=== PATIENT | female | born 1980 ===

== ENCOUNTER 2016-11-14 12:42 | Emergency (ER) | payer OTHER ==
--- NOTE | 2016-11-14 13:28 | C.PDOC ---
History Of Present Illness 36 year old patient presents to the ED complaining of chronic headaches since last year. Patient notes the pain has been more right sided for the past week. Occasionally she feels numbness to her feet. Patient denies any injuries, dizziness, nausea, vomiting or chest pain. Time Seen by Provider: 11/14/16 13:18 Chief Complaint (Nursing): Headache History Per: Patient History/Exam Limitations: no limitations Onset/Duration Of Symptoms: Worse Since (past week), Other (last year) Current Symptoms Are (Timing): Still Present Severity: Moderate Pain Scale Rating Of: 4 Quality: "Pain" Preceeding Symptoms: None Recent travel outside of the [place]: No Past Medical History Reviewed: Historical Data, Nursing Documentation, Vital Signs Vital Signs: Last Vital Signs Temp 98.1 F 11/14/16 15:26 Pulse 62 11/14/16 15:26 Resp 18 11/14/16 15:26 BP 114/74 11/14/16 15:26 Pulse Ox 98 11/14/16 15:33 Family History: States: Unknown Family Hx - Social History Hx Alcohol Use: No Hx Substance Use: No - Immunization History Hx Tetanus Toxoid Vaccination: No Hx Influenza Vaccination: No Hx Pneumococcal Vaccination: No Review Of Systems Except As Marked, All Systems Reviewed And Found Negative. Cardiovascular: Negative for: Chest Pain Gastrointestinal: Negative for: Nausea, Vomiting Neurological: Positive for: Headache (right>left). Negative for: Dizziness Physical Exam - Physical Exam Appears: Non-toxic, No Acute Distress Skin: Warm, Dry Head: Atraumatic, Normacephalic Eye(s): bilateral: Normal Inspection, EOMI Ear(s): Bilateral: Normal Nose: Normal Oral Mucosa: Moist Throat: Normal Neck: Normal ROM, Supple Chest: Symmetrical Cardiovascular: Rhythm Regular Respiratory: No Accessory Muscle Use Back: Normal Inspection, No CVA Tenderness Extremity: Normal ROM Neurological/Psych: Oriented x3, Normal Speech, Normal Cognition, Normal Motor, Normal Sensation Gait: Steady ED Course And Treatment O2 Sat by Pulse Oximetry: 98 (RA) Pulse Ox Interpretation: Normal - Other Rad head/sinus CT X-Ray: Read By Radiologist (neg) Progress Note: Plan: -Head CT. -Pepcid, Ultram, Prednisone. -Reassess and disposition Medical Decision Making Medical Decision Making: seaonal allergies no neurological deficits to warrant further eval at this time outpatient neuro f/u. Disposition Doctor Will See Patient In The: Office Counseled Patient/Family Regarding: Studies Performed, Diagnosis - Disposition Referrals: [facility] [Outside] [facility] [Outside] Parviz Wan MD [Staff Provider] - Disposition: HOME/ ROUTINE Disposition Time: 15:32 Condition: GOOD Additional Instructions: sigue Ibuprofeno 600 mg cada 6 horas marcela necessario Tylenol 1000 mg cada 6 horas Pepcid 20 mg en la noche para prevenir irritacion' del estomach deibido al Ibuprofeno Sigue en la Clinica o' con el Neurologo marcela necessario. Instructions: General Headache (ED) Print Language: GREENLANDIC - Clinical Impression Clinical Impression: Headache - Scribe Statement The provider has reviewed the documentation as recorded by the Scribe Kendy Koroma Provider Attestation: All medical record entries made by the Scribe were at my direction and personally dictated by me. I have reviewed the chart and agree that the record accurately reflects my personal performance of the history, physical exam, medical decision making, and the department course for this patient. I have also personally directed, reviewed, and agree with the discharge instructions and disposition.
--- NOTE | 2016-11-14 14:55 | CT ---
PROCEDURE: CT HEAD WITHOUT CONTRAST. HISTORY: R AYOUB chronic, plz scan sinuses/head COMPARISON: None available. TECHNIQUE: Axial computed tomography images were obtained through the head/brain without intravenous contrast. Radiation dose: Total exam DLP = 972.77 mGy-cm. This CT exam was performed using one or more of the following dose reduction techniques: Automated exposure control, adjustment of the mA and/or kV according to patient size, and/or use of iterative reconstruction technique. FINDINGS: HEMORRHAGE: No intracranial hemorrhage. BRAIN: No mass effect or edema. No atrophy or chronic microvascular ischemic changes.Please note that MRI with diffusion imaging is more sensitive in the detection of acute ischemic event. VENTRICLES: No hydrocephalus. CALVARIUM: Unremarkable. PARANASAL SINUSES: Unremarkable as visualized. No significant inflammatory changes. MASTOID AIR CELLS: Unremarkable as visualized. No inflammatory changes. OTHER FINDINGS: None. IMPRESSION: No acute intracranial pathology identified.
[2016-11-14 15:27] VITALS: BP 114/74; PULSE 62; RESP 18; TEMP 98.1
[2016-11-14 15:33] VITALS: O2SAT 98
== END 2016-11-14 15:51 | disposition home or self-care (01) ==
LOC: C.ER 12:42
DX: R51 Headache (principal)

== ENCOUNTER 2018-02-03 03:36 | Inpatient (IN) | payer MEDICAID, OTHER ==
[2018-02-03 04:20] VITALS: BMI 33.0
[2018-02-03 06:11] LABS: SQUAMOUS EPITHIAL 24 /hpf (0-5); URINE BACTERIA RARE (<OCC); URINE BILIRUBIN NEGATIVE (NEGATIVE); URINE BLOOD 2+ (NEGATIVE); URINE CLARITY Hazy (Clear); URINE COLOR Yellow (YELLOW); URINE GLUCOSE (UA) NORMAL (Normal); URINE LEUKOCYTE ESTERASE 3+ Leu/uL (Negative); URINE PROTEIN NEGATIVE (NEGATIVE)
--- NOTE | 2018-02-03 06:11 | OBHP ---
Datetime: 02/03/2018 04:42 IP Adm Impression: Term, intrauterine ; Intact Membranes IP Admit Plan: Admit to unit; Observation/Evaluation Admit Comment, IP Provider: 37 yo female with an IUP at 39.6 weeks Presented with c/o of gush of fluid at home and painful contractions every 3 mins PNC record reviewed and WNL/ GBS Negative No fluid in vagina and Nitrazine negative FHT's reactive and reassuring. Cat I/ UC's Q 3-4 mins apart Very early labor and will monitor for a while Pelvic Type - PN: Adequate Extremities - PN: Normal Abdomen - PN: Normal Back - PN: Normal Breast - PN: Not Done Lungs - PN: Normal Heart - PN: Normal Thyroid - PN: Normal Neurologic - PN: Normal HEENT - PN: Normal General - PN: Normal Presentation-Admit: Vertex FHR - Baseline A Provider: 140 Membranes, Provider: Intact Comments, ACOG Physical Exam: No fluid in vagina and Nitrazine negative Gestation - Est Wks by US: 39.6 Nitrazine Provider: Negative EGA AdmitDate IP: 39.6 Vital Signs Provider: Reviewed; Within Normal Limits IP Chief Complaint: Uterine contractions; Suspected ruptured membranes NICHD Variability Prov Fetus A: Moderate 6-25bpm NICHD Accel Fetus A IP Provider: 10X10 FHR Category Provider Fetus A: Category I NICHD Decel Fetus A IP Provider: None Dilatation, Provider: 1-2 Effacement, Provider: 90 Station, Provider: -3 Genitourinary Exam: Normal DTRs - PN: Normal
[2018-02-03] MEDS ORDERED: Lactated Ringer's 1,000 ML IV ONE (06:59)
--- NOTE | 2018-02-03 07:30 | OBADHP ---
Datetime: 02/03/2018 07:10 Admit Comment, IP Provider: 37 yo female with IUP at 39 6/7 weeks AMA Active Labor GBS Negative Will admit for vaginal Delivery Requested an Epidural Report given to Dr. Estrada Pelvic Type - PN: Adequate Extremities - PN: Normal Abdomen - PN: Normal Back - PN: Not Done Breast - PN: Normal Lungs - PN: Normal Heart - PN: Normal Thyroid - PN: Normal Neurologic - PN: Normal HEENT - PN: Normal General - PN: Normal Presentation-Admit: Vertex FHR - Baseline A Provider: 130 Membranes, Provider: Intact Gestation - Est Wks by US: 39 6/7 Vital Signs Provider: Reviewed; Within Normal Limits IP Chief Complaint: Uterine contractions NICHD Variability Prov Fetus A: Moderate 6-25bpm NICHD Accel Fetus A IP Provider: 10X10 FHR Category Provider Fetus A: Category I NICHD Decel Fetus A IP Provider: None Dilatation, Provider: 2-3 Effacement, Provider: 90 Station, Provider: -2 Genitourinary Exam: Normal DTRs - PN: Normal EGA AdmitDate IP: 39.6 IP Adm Impression: Term, intrauterine ; Active labor; Intact Membranes IP Admit Plan: Admit to unit; Initiate labor protocol Datetime: 02/03/2018 04:42 Contraction Comments Provider: 2-3 mins Comments, ACOG Physical Exam: No fluid in vagina and Nitrazine negative Nitrazine Provider: Negative
[2018-02-03 07:51] LABS: BASO % 0.3 % (0.0-2.0); EOS % 0.2 % (0.0-4.0); HEMOGLOBIN 12.3 g/dL (11.0-16.0); LYMPH % 15.1 % (20.0-40.0); MEAN CORPUSCULAR HEMOGLOBIN 30.9 pg (27.0-31.0); MEAN CORPUSCULAR HGB CONC 34.9 g/dL (33.0-37.0); MEAN PLATELET VOLUME 9.3 fL (7.2-11.7); MONO # 0.5 K/uL (0.0-0.8); MONO % 3.9 % (0.0-10.0); NEUT # 10.9 K/uL (1.8-7.0); NEUT % 80.5 % (50.0-75.0); RBC 3.98 Mil/uL (3.80-5.20); RED CELL DISTRIBUTION WIDTH 15.5 % (11.5-14.5)
[2018-02-03 07:53] LABS: MEAN CELL VOLUME 88.5 fL (81.0-99.0); WHITE BLOOD COUNT 13.5 K/uL (4.8-10.8)
[2018-02-03] MEDS ORDERED: Bupivacaine HCl 0.5% PF (30 ml) Inj ONE (08:12)
[2018-02-03] MEDS ORDERED: Oxytocin 30 UNIT 30 UNITS/500 ML BAG IV ONE ×3 (08:42→09:05)
[2018-02-03] MEDS ORDERED: Bupivacaine HCl/FentaNYL Cit 100 ML EPI ONE (08:42)
--- NOTE | 2018-02-03 09:14 | OBPN ---
Datetime: 02/03/2018 09:07 IP Progress Impression: Normal progression of labor IP Procedures: Sterile Vag Exam IP Progress Plan: Continue present management; Augmentation; Anticipate Vaginal Delivery Membranes, Provider: Intact Contraction Comments Provider: irregularly, irregular FHR - Baseline A Provider: 145 Gestation - Est Wks by US: 39w 6d Presentation-Admit: Vertex IP Progress Note Comment: Patient received in LDR#4, S/P epidural - c/o vaginal pressure and pain, e specially at onset of contractions. (+) AFM Cervical exam - as above. Assessment: 37 y.o. P2, 39w 6d entering active pohase of labor. GBS (-). D/W patient augmentaiton : risks and possible complications including but not limited to posible need for abdominal delivery w ere discussed. Patient expressed an understanding and agrees; no questions offered. Category 1 tracin g. Clinically stable. Plan: 1) Anesthesia consultation 2) Start pitocin 3) Anticipate vaginal delivery NICHD Accel Fetus A IP Provider: 15X15 FHR Category Provider Fetus A: Category I NICHD Variability Prov Fetus A: Moderate 6-25bpm Dilatation, Provider: 4 Effacement, Provider: 50 Station, Provider: -3 NICHD Decel Fetus A IP Provider: None Datetime: 02/03/2018 07:10 Vital Signs Provider: Reviewed; Within Normal Limits Datetime: 02/03/2018 04:42 Nitrazine Provider: Negative
--- NOTE | 2018-02-03 13:14 | OBPN ---
Datetime: 02/03/2018 13:04 IP Progress Impression: Normal progression of labor IP Procedures: Sterile Vag Exam IP Progress Plan: Continue present management; Augmentation; Anticipate Vaginal Delivery Membranes, Provider: Intact Contraction Comments Provider: every 1-2 minutes FHR - Baseline A Provider: 145 Gestation - Est Wks by US: 39w 6d Presentation-Admit: Vertex IP Progress Note Comment: Patient received in LDR#4; reports feeling slightly more pain, pain scale 2/10. (+) FM Cervical exam - as above. Pitocin at 14 mU Assessment: 37 y.o. P2, 39w 6d, on pitocin augmentaiton - adequate cervical change; labor progres s. GBS (-). Category 1 tracing. Clinically stable. Plan: 1) Continue present management 2) Anticpate vaginal delivery Vital Signs Provider: Reviewed; Within Normal Limits NICHD Accel Fetus A IP Provider: 15X15 FHR Category Provider Fetus A: Category I NICHD Variability Prov Fetus A: Moderate 6-25bpm Dilatation, Provider: 7 Effacement, Provider: 80 Station, Provider: -1 NICHD Decel Fetus A IP Provider: None
[2018-02-03] MEDS ORDERED: Oxytocin 10 Units/ml Inj ONE (14:51)
[2018-02-03] MEDS ORDERED: Lidocaine 2% MPF (5 ml) Inj ONE ×2 (14:59)
[2018-02-03] MEDS ORDERED: Oxycodone/Acetaminophen 5/325 mg Tab PO PRN (15:16)
--- NOTE | 2018-02-03 15:54 | OBDS ---
DELIVERY PERSONNEL Delivery Doctor: Johnny Ford MD Dry Cleaning Teacher: Biju Neff RN Anesthesiologist: dr. kim MATERNAL INFORMATION Delivery Anesthesia: Epidural Medications in Delivery: pitocin 30 units IV, hemabate 250 mcg IM Estimated Blood Loss (ml): 1000 Placenta Cultured: No Maternal Complications: Hemorrhage (Annotations: Data stored by CPN on behalf of user) Provider Comments: Patient with urge to push; fully dilated and encouraged to push. Vaginal delivery of live male infant, direct OA position over intact perineum. No nuchal cord note d. Infant's mouth and nose bulb-sucitoned on perienum. Umbilical cord doubly clamped and cut. Infant placed on patient's abdomen. Spontaneous delivery of placenta - grossly intact; noted for areas of c alcifications. 3 vessel cord Uterine exploration performed - heavy uterine bleeding noted. Cervix, vagina and perieneum inspect ed - no cervical lacerations noted; vaginal and perineal laceration as above. Oxytocin infusing and hemabate given IM. Bimanual massage continued - uterus contracted and uterine bleeidng abated. Lacer ations repaired as above. Paitent tolerated procedure well, in stable condition. to [facility] in stable condi tion. weight 7lb 3oz EBL 1,000 mL 's 9/9 LABOR SUMMARY EDC: 02/04/2018 00:00 No. Babies in Womb: 1 Attempted: No Labor Anesthesia: Epidural LABOR INFORMATION Onset of Labor: 02/03/2018 09:04 Complete Dilatation: 02/03/2018 14:18 Oxytocin: Augmentation Group B Beta Strep: Negative Steroids Given: None Reason Steroids Not Administered: Not Applicable MEMBRANES Membranes Rupture Method: Artificial Rupture of Membranes: 02/03/2018 14:16 Length of Rupture (hrs): 0.15 Amniotic Fluid Amount: None Amniotic Fluid Odor: None STAGES OF LABOR Stage 1 hrs: 5 Stage 1 min: 14 Stage 2 hrs: 0 Stage 2 min: 7 Stage 3 hrs: 0 Stage 3 min: 18 Total Time in Labor hrs: 5 Total Time in Labor min: 39 VAGINAL DELIVERY Episiotomy: None Laceration Extension: First Degree Laceration Type: Vaginal Other Laceration: first degree left vaginal. perineal Laceration Repair: Yes Laceration Repair Note: 3-0 chromic - routine fashion Sharps Count Correct: Yes Count Comment: Correct BABY A INFORMATION Infant Delivery Date/Time: 02/03/2018 14:25 Method of Delivery: Vaginal Born in Route : No : N/A Forceps: N/A Vacuum Extraction: N/A Shoulder Dystocia : No SHOULDER DYSTOCIA BABY A Infant Delivery Date/Time: 02/03/2018 14:25 PRESENTATION/POSITION BABY A Presentation: Cephalic Cephalic Presentation: Vertex Vertex Position: direct occipital anterior Breech Presentation: N/A PLACENTA INFORMATION BABY A Placenta Delivery Time : 02/03/2018 14:43 Placenta Method of Delivery: Spontaneous Placenta Status: Delivered SCORES BABY A Heart Rate 1 min: >100 bpm Resp Effort 1 min: Good Cry Reflex Irritability 1 min: Cough or Sneeze or Pulls Away Muscle Tone 1 min: Active Motion Color 1 min: Body [place], Extremities Blue Resuscitation Effort 1 min: Tactile Stimulation SCORE 1 MIN: 9 Heart Rate 5 min: >100 bpm Resp Effort 5 min: Good Cry Reflex Irritability 5 min: Cough or Sneeze or Pulls Away Muscle Tone 5 min: Active Motion Color 5 min: Body [place], Extremities Blue Resuscitation Effort 5 min: N/A SCORE 5 MIN: 9 INFANT INFORMATION BABY A Gestational Age at Delivery: 39.6 Gestational Status: Term Outcome : Liveborn Condition : Stable Infant Sex: Male IDENTIFICATION/MEDS BABY A ID Band Number: [id number] ID Band Location: Left Leg; Left Arm Sensor Applied: Yes Sensor Number: [id number] Sensor Location : Cord Clamp WEIGHT/LENGTH BABY A Birthweight (gms): 3255 Weight (lb): 7 Weight (oz): 3 Length Inches: 18.50 Length cms: 47.0 CORD INFORMATION BABY A No. Cord Vessels: 3 Nuchal Cord : N/A Nuchal Cord Other: n/a True Knot: n/a Infant Cord pH Baby Arterial: n/a Cord pH Baby Venous: n/a Cord Blood Taken: Yes Infant Suction: Mouth; Nose
[2018-02-03] MEDS: Oxycodone/Acetaminophen 5/325 mg Tab PO PRN ×2 (15:55→20:42)
[2018-02-03] MEDS ORDERED: Oxycodone/Acetaminophen 5/325 mg Tab ONE (15:56)
[2018-02-03] MEDS ORDERED: Benzocaine/Menthol 20%-0.5% Topical Spray (60 ml) TOP SCH (18:00)
[2018-02-03 21:12] LABS: BASO % 0.1 % (0.0-2.0); LYMPH # 1.8 K/uL (1.0-4.3); LYMPH % 10.7 % (20.0-40.0); MEAN CELL VOLUME 88.3 fL (81.0-99.0); MEAN CORPUSCULAR HGB CONC 33.9 g/dL (33.0-37.0); MEAN PLATELET VOLUME 8.8 fL (7.2-11.7); MONO # 0.9 K/uL (0.0-0.8); MONO % 5.2 % (0.0-10.0); NEUT # 14.4 K/uL (1.8-7.0); RBC 2.93 Mil/uL (3.80-5.20); RED CELL DISTRIBUTION WIDTH 15.1 % (11.5-14.5); WHITE BLOOD COUNT 17.2 K/uL (4.8-10.8)
[2018-02-03 21:17] LABS: HEMOGLOBIN 8.8 g/dL (11.0-16.0)
[2018-02-04 07:00] LABS: BASO % 0.2 % (0.0-2.0); EOS % 0.1 % (0.0-4.0); HEMOGLOBIN 8.5 g/dL (11.0-16.0); LYMPH # 2.4 K/uL (1.0-4.3); LYMPH % 18.3 % (20.0-40.0); MEAN CELL VOLUME 88.7 fL (81.0-99.0); MEAN CORPUSCULAR HEMOGLOBIN 30.8 pg (27.0-31.0); MEAN CORPUSCULAR HGB CONC 34.7 g/dL (33.0-37.0); MEAN PLATELET VOLUME 8.7 fL (7.2-11.7); MONO # 0.6 K/uL (0.0-0.8); MONO % 4.6 % (0.0-10.0); NEUT % 76.8 % (50.0-75.0); RBC 2.75 Mil/uL (3.80-5.20); RED CELL DISTRIBUTION WIDTH 15.6 % (11.5-14.5)
[2018-02-04 07:59] VITALS: RESP 18
[2018-02-04] MEDS: Multiple Vitamins Tab PO SCH (10:00)
--- NOTE | 2018-02-04 12:11 | OBPPN ---
Datetime: 02/04/2018 11:57 PP Pain Prov: Within normal limits PP Nausea Prov: Denies PP Flatus Prov: Yes PP BM Prov: No PP Breasts Prov: Normal PP Heart Prov: Normal PP Lungs Prov: Normal PP Abdomen/Uterus Prov: Normal PP Lochia Prov: Normal PP Vulva/Perineum Prov: Normal PP CVA Tenderness Prov: Normal PP Extremities Prov: Normal PP C/S Incision Prov: Not Applicable PP Progress Prov: Normal PP Comments Phys Exam Prov: Abdomen: Obese. Soft. (+) BS. Fundus firm, mobile, mildly tender, 18 wee ks. Mild lochia rubra. Extremities: no calf tenderness, cyanosis or edema All other systems reviewed and are negative PP Impression Prov: Normal progression PP Plan Prov: Continue present management PP Progress Note Prov: Patient received in chair in room 452 at approximaterly 1040 hours: multiple family members present. Patient is exclusively. Ambulating and voiding without difficul ty. C/O vaginal discomfort; and mild uterine cramps - relieved by motrin. Patient denies headaches, d izziness, lightheadedness. chest pain, shortness of breath, or palpitations. P.E.: as above. Mildly obese, in NAD. Awake, alert, oriented to time, person and place. Pleasant and cooperative. - H/H: adm 12.3/35.2; 1900 02/04, 8.8/25.9; today, 8.5/24.4. WBC, 17.2; now 13. Rh (+) Assessment: PPD#1, 37 y.o. P3, S/P with acute post hemorrhage. Acute blood anemia noted . Patient is asymptomatic and hemodynamically stable. It was explained to patient this blood loss and the more common accompanying symptoms - which she is not experiencing at this time. Patient advised on iron supplementation, increased p.o. intake of water, iron-rich foods and daily orange juice cons umption; and to take assistance in getting around for the next several days/weeks. Patient expressed an understanding and agrees. Patient is clinically stablbe. Plan: 1) Iron supplementation TID 2) Colace TID 3) encourage ambulation 4) Continue present post managment 5) Anticipate discharge home 02/05/18. IP PP Procedures: None Vital Signs Provider PP: Reviewed; Within Normal Limits
[2018-02-05] MEDS: Multiple Vitamins Tab PO SCH (09:11)
--- NOTE | 2018-02-05 11:26 | OBDCSUM ---
Datetime: 02/05/2018 07:53 Discharged to, Provider: Home Follow up at, Provider: Disch Instr Activity: Normal activity; May Shower Disch Instr Diet: Regular Discharge Diet restrict Prov: none Discharge Instructions, Provider: Routine instructions given Discharge Diagnosis, Provider: Term Delivered Discharge Time: 02/05/2018 12:00 Follow up in weeks, Provider: 6 weeks Disch Referrals: None Contraception discussed, Prov: Yes Disch Activity Restrictions: No lifting; No sexual activity; Nothing in vagina - [place], tampon s, douche Discharge Comment, Provider: PPD # 2 S/P with Mild PP Hemmorhage Acute Anemia, Asymptomatic Stable and Satisfactory condition and recovery Rx for Fe and Colace BID Advised to increase po water intake and ambulation Discharge Diagnosis Prov Other: Acute Anemia from PP Hemorrhage, Asymptomatic Contraception after Delivery: Not Planning to Use
[2018-02-05 15:20] VITALS: BP 113/71; PULSE 72; TEMP 97.2; O2SAT 99
== END 2018-02-05 11:17 | disposition home or self-care (01) | DRG 372 ==
LOC: C.EROB 03:36 → C.4D 06:59 → C.4M 16:42
PROVIDERS: ADMIT Obstetrics & Gynecology; ATTEND Obstetrics & Gynecology
PROC: 10E0XZZ Delivery of Products of Conception, External Approach (ICD-10-PCS; principal; 2018-02-03)
PROC: 0HQ9XZZ Repair Perineum Skin, External Approach (ICD-10-PCS; 2018-02-03)
DX: O70.0 First degree perineal laceration during delivery (principal); O72.1 Other immediate postpartum hemorrhage; O99.02 Anemia complicating childbirth; O99.214 Obesity complicating childbirth; E66.9 Obesity, unspecified; Z3A.39 39 weeks gestation of pregnancy; Z68.33 Body mass index [BMI] 33.0-33.9, adult; Z37.0 Single live birth